=== PATIENT | female | born 1985 | race Caucasian/White ===

== ENCOUNTER 2017-07-10 16:24 | Emergency (ER) | payer BC ==
[~2017-07-10] VITALS: Ht 165.1 cm; Wt 98.7 kg
[2017-07-10] MEDS ORDERED: MOTRIN600 MG PO (17:47)
[2017-07-10 17:58] VITALS: BP 131/89
== END 2017-07-10 17:59 | disposition home or self-care (01) ==
LOC: EME 16:24
DX: M75.21 Bicipital tendinitis, right shoulder (principal); X50.9XXA Other and unspecified overexertion or strenuous movements or postures, initial encounter; Y99.0 Civilian activity done for income or pay; F17.200 Nicotine dependence, unspecified, uncomplicated
CPT/HCPCS: 99281; 99283

== ENCOUNTER 2017-07-24 17:41 | Emergency (ER) | payer BC ==
[~2017-07-24] VITALS: Ht 165.1 cm; Wt 96.7 kg
[~2017-07-24 17:41] MED LIST: MOTRIN600 MG PO
[2017-07-24] MEDS ORDERED: MOTRIN600 MG PO (22:15)
[2017-07-24] MEDS ORDERED: ULTRAM50 MG PO (22:15)
[2017-07-24 22:54] VITALS: BP 144/79
== END 2017-07-24 23:00 | disposition home or self-care (01) ==
LOC: EME 17:41
DX: M25.562 Pain in left knee (principal); M79.89 Other specified soft tissue disorders
CPT/HCPCS: 73564; 93971; 99281; 99284

== ENCOUNTER 2017-09-26 16:04 | Emergency (ER) | payer SELFPAY ==
[~2017-09-26] VITALS: Ht 165.1 cm; Wt 97.0 kg
[~2017-09-26 16:04] MED LIST changes: +ULTRAM50 MG PO
[2017-09-26] MEDS ORDERED: ZOFRAN4 MG PO (18:11)
[2017-09-26 18:23] VITALS: BP 149/88
== END 2017-09-26 18:23 | disposition home or self-care (01) ==
LOC: EME 16:04
DX: R11.2 Nausea with vomiting, unspecified (principal); F17.200 Nicotine dependence, unspecified, uncomplicated
CPT/HCPCS: 99281; 99284